=== PATIENT | female | born 1950 | race Caucasian/White ===

== ENCOUNTER 2019-08-14 07:19 | Outpatient (CLI) | payer MEDICARE, SELFPAY ==
[2019-08-14 08:30] LABS: Abs Immature Grans 0.01 k/cumm (0.0-0.09); Absolute Basophil Count 0.03 k/cumm (0.0-0.2); Absolute Eosinophil Count 0.21 k/cumm (0.0-0.7); Absolute Lymphocyte Count 3.67 k/cumm (1.2-3.4); Absolute Monocyte Count 0.65 k/cumm (0.11-0.7); Absolute Neutrophil Count 2.84 k/cumm (1.2-6.7); Basophils % 0.4; Eosinophils % 2.8; HCT 43.4 % (36.0-46.0); HGB 14.8 g/dL (12.0-15.5); Immature Grans % 0.1; Lymphocytes % 49.5; Mean Corp. HGB Concentration 34.1 g/dL (32.0-36.0); Mean Corpuscular Hemoglobin 30.6 pg (27.0-33.0); Mean Corpuscular Volume 89.7 fL (80-95); Mean Platelet Volume 10.1 fL (8.0-11.0); Monocytes % 8.8; Neutrophils % 38.4; Platelet Count 328 x1000/uL (130-400); RBC 4.84 m/cumm (4.00-5.20); RBC Distribution Width 13.6 % (11.7-14.6); White Blood Cell Count 7.41 k/cumm (4.4-10.8)
[2019-08-14 10:05] LABS: ALT 45 U/L (14-59); AST 25 U/L (15-37); Albumin 3.8 g/dL (3.4-5.0); Alkaline Phosphatase 49 U/L (46-116); Anion Gap 7.7 mmol/L (3-11); BUN 11 mg/dL (7-18); Bilirubin, Total 0.8 mg/dL (0.2-1.0); CO2 30.3 mmol/L (21.0-32.0); CREATININE 0.89 mg/dL (0.55-1.02); Calcium 9.1 mg/dL (8.5-10.1); Calculated LDL 91 mg/dL; Chloride 106 mmol/L (98-107); Cholesterol 162 mg/dL (50-200); Glucose 97 mg/dL (70-100); HDL Cholesterol 61 mg/dL (40-60); Potassium 4.1 mmol/L (3.5-5.1); Sodium 144 mmol/L (136-145); Total Protein 6.7 g/dL (6.4-8.2); Triglyceride 52 mg/dL (30-150)
== END 2019-08-14 07:39 ==
PROVIDERS: PCP Family Medicine; Visit Provider Family Medicine
DX: E78.5 Hyperlipidemia, unspecified (principal); K90.0 Celiac disease
CPT/HCPCS: 36415; 80053; 80061; 85025

== ENCOUNTER 2019-09-23 00:52 | Outpatient (CLI) | payer MEDICARE, SELFPAY ==
--- NOTE | 2019-09-23 08:13 | DI.MAMMO_ITS ---
EXAM: MAMMO SCREENING CLINICAL HISTORY: SCREENING, Z12.31 TECHNIQUE: Mammograms were interpreted according to the usual protocol including computer analysis w [employer] CAD system, tomosynthesis and C-view imaging. COMPARISON: [id number] FINDINGS: The breasts are composed of heterogeneously dense fibroglandular tissue, breast density category C. No suspicious masses or suspicious microcalcifications are seen. There has been no significant change . IMPRESSION: Category 1, negative mammogram. Yearly screening mammography is recommended. BI-RADS Cat 1 - Negative Breast Density - Category C - Heterogeneously dense
== END 2019-09-23 01:12 ==
PROVIDERS: PCP Family Medicine; Visit Provider Family Medicine
DX: Z12.31 Encounter for screening mammogram for malignant neoplasm of breast (principal)
CPT/HCPCS: 77063; 77067

== ENCOUNTER 2020-04-08 15:56 | Outpatient (CLI) | payer MEDICARE, SELFPAY ==
--- NOTE | 2020-04-08 09:45 | DI.RAD_ITS ---
EXAM: XR HIP RT COMPLETE AP PELVIS INDICATION: eval R hip pain. COMPARISON: No exams were available for comparison TECHNIQUE: 2D digital imaging was performed. FINDINGS: Moderately severe degenerative changes are seen in the right hip. There is joint space narrowing and subchondral sclerosis. A collar osteophyte is seen in the right femur. The bones are normally mine ralized. The left hip is well maintained. The sacroiliac joints and symphysis pubis are unremarkabl e. The soft tissues are unremarkable. IMPRESSION: Moderately severe osteoarthritis of the right hip. DATA REPOSITORY: RADIATION DOSE DELIVERED:
== END 2020-04-08 16:16 ==
PROVIDERS: PCP Family Medicine; Referring Provider Family Medicine; Visit Provider Student in an Organized Health Care Education/Training Program
DX: M25.551 Pain in right hip (principal); M16.11 Unilateral primary osteoarthritis, right hip
CPT/HCPCS: 99203; 99214; 73502

== ENCOUNTER 2020-07-16 01:54 | Outpatient (CLI) | payer MEDICARE, SELFPAY ==
[2020-07-16 09:36] LABS: HCT 46.4 % (36.0-46.0); HGB 15.6 g/dL (11.2-15.7); MCH 30.3 pg (27.0-33.0); MCHC 33.6 % (32.0-36.0); MCV 90.1 fL (80-95); MPV 9.9 fL (8.0-11.0); Platelet Count 336 10^3/uL (130-400); RBC 5.15 10^6/uL (3.93-5.22); RDW 12.8 % (11.7-14.6); RDW-SD 42.5 fL
[2020-07-16 10:35] LABS: Anion Gap 9.8 mmol/L (3-11); BUN 8 mg/dL (7-18); CO2 28.2 mmol/L (21.0-32.0); CREATININE 0.84 mg/dL (0.55-1.02); Calcium 9.6 mg/dL (8.5-10.1); Chloride 104 mmol/L (98-107); Glucose 110 mg/dL (74-106); Sodium 142 mmol/L (136-145)
[2020-07-17 17:24] LABS: COVID-19 RT-PCR Result NEGATIVE (Negative)
== END 2020-07-16 02:14 ==
PROVIDERS: PCP Family Medicine; Visit Provider Student in an Organized Health Care Education/Training Program
DX: M16.11 Unilateral primary osteoarthritis, right hip (principal); Z01.818 Encounter for other preprocedural examination
CPT/HCPCS: 36415; 80048; 85027; 86850; 86900; 86901; U0003

== ENCOUNTER 2020-07-20 07:17 | Observation (INO) | payer MEDICARE, SELFPAY ==
[2020-07-20] VITALS (12 sets, daily range): BP systolic 76–125; BP diastolic 43–80; PULSE 64–87; RESP 15–18; TEMP 35–36.7; O2SAT 95–100
[2020-07-20] MEDS: Celecoxib 200 MG CAP 400 MG PO (07:48)
[2020-07-20] MEDS: Acetaminophen 500 MG TAB 1000 MG PO ×3 (07:49→20:00)
[2020-07-20] MEDS: Lactated Ringers 1,000 ML 80 ML IV ×3 (08:08→23:51)
[2020-07-20] MEDS: ceFAZolin 2 GM/50 ML BAG IVPB (09:14)
[2020-07-20] MEDS: Bupivacaine 0.25% Pres-Free 30 ML VIAL (10:20)
[2020-07-20] MEDS: Ketorolac 30 MG/ML VIAL (10:20)
--- NOTE | 2020-07-20 10:28 | DI.RAD_ITS ---
EXAM: XR HIP RT IN OR CLINICAL HISTORY: Primary osteoarthritis of right hip TECHNIQUE: 2D and realtime digital imaging was performed. CONTRAST MATERIAL: Refer to procedure report. COMPARISON: No exams were available for comparison FINDINGS: Fluoroscopy was provided for Dr. Wooten during the performance of a right total hip replacement. Please refer to the procedure report for complete details. Fluoro time: 33.2 seconds IMPRESSION: RADIATION DOSE DELIVERED:
--- NOTE | 2020-07-20 10:33 | ROE_ITS ---
Date of service: 07/20/20 Time of Service: 10:33 Operative Note Operative Note DATE OF PROCEDURE: 07/20/20 PRE-OP DIAGNOSIS: Right Hip Osteoarthritis POST-OP DIAGNOSIS: same PROCEDURE: Right Anterior Total Hip Arthroplasty SURGEON: Fredy Wooten FISHER LINE: Chavez Torres ANESTHESIA: spinal ESTIMATED BLOOD LOSS: 200 PATHOLOGY: none sent COMPLICATIONS: None Patient was transported to: PACU Patient's condition: stable Implants: 1. Depuy [place] Acetabular Component, 50mm 2. Depuy Acetabular Liner, [id number] 3. Depuy Corail High Offset Collared Femoral Stem, Size 10 4. Depuy Altrx Ceramic Femoral Head, Size 32+5mm Indications: I have seen Yaritza in clinic for symptoms of hip arthritis, confirmed with radiographic findings. She has exhausted nonoperative methods and was having significant limitations in daily function and desired better function and less pain. I discussed the technical details of a hip replacement. I explained the risks of the procedure to include, but not limited to, bleeding, infection, pain, stiffness, fracture, damage to nerves and vessels, damage to muscles and tendons, loosening, instability, leg length inequality, need for repeat procedure, blood clot and cardiopulmonary demise. Despite these risks, Yaritza elected to proceed. Findings: There was significant signs of arthritis throughout the hip. Large peripheral osteophytes were encountered along the femoral neck. Procedure Description: Yaritza was greeted in the preoperative holding area where the correct side was identified and marked. The consent was reviewed with the patient and signed. The history and physical was updated. All questions were answered. Yaritza was taken back to the operating room. A spinal anesthestic was then administered. The patient was placed into the supine position on the operating room table. The patient was then positioned onto the ARCH table. Both feet were wrapped with Webrill cotton wrap along with Coban. The feet were placed in specialized boots for the ARCH table, well seated within the boot and secured. SCDs were applied. The patient was then slid down onto a peroneal post and the nonoperative leg was secured in a leg freedman attached to the table. The operative side was placed into the ARCH table attachment and bed height and positioning was secured. A preoperative AP pelvis was obtained to serve as a reference for determining leg lengths. Prophylactic antibiotics in the form of Cefazolin were administered. 1g of Tranxemic Acid was given intravenously within 30 minutes of incision. The right leg was then prepped with Chloraprep and draped in a standard fashion. A second prep with Chloraprep was performed prior to placement of a shower-curtain type drape with Iodine impregnated skin protection. A timeout to confirm correct identity, side and site, procedure, allergies, anesthesia, and medical concerns was performed. An obliquely oriented incision was made starting lateral to the ASIS and running distal over the Tensor Fascia Sarah (TFL) muscle belly toward the fibular head, approximately 10cm. The skin and soft tissue was dissected sharply, through Sharon?s fascia, and to the fascia of the TFL. With the fascia and superior border of the IT band identified, the fascia was incised with a new knife just above any perforators from the IT band. The TFL muscle belly was bluntly dissected away from the fascia and moved laterally. The fat between TFL and rectus was identified to ensure the dissection was not within the TFL. Blunt dissection created space between abductors and the capsule and retractor was placed over the lateral femoral neck. The fibers of the rectus femoris tendon were identified and these were freed from the anterior capsule. A second cobra retractor was placed around the medial femoral neck. The TFL was further retracted laterally to show the deep fascia. Careful dissection through this layer identified three main crossing vessels of the lateral femoral circumflex. These were cauterized in multiple locations and then cut without any noticeable bleeding. The TFL was further released bluntly from the deep fascia to expose anterior hip capsule and fat The Mike orthopaedic retractor was then placed beneath the TFL and against sartorius and medial soft tissues to protect and retract the soft tissues. A T-capsulotomy was then performed starting at the superior lateral acetabulum a nd moving distally to the intertrochanteric ridge. These capsular flaps were tagged with a No. 1 Ethibond and elevated from within. The capsular flaps were released to the shoulder of the lateral neck and to the lesser trochanter to give excellent visualization of the proximal femur. A neck osteotomy was performed using an oscillating saw based on preoperative templates. This cut started in the shoulder and of the lateral neck and exited medially. The saw was at all times directed medially to avoid injury to the greater trochanter. 6cm of traction was applied to the leg and the osteotomy opened. The femoral head was removed with a corkscrew, making sure to protect the TFL on its exit. This was measured on the back table to determing the starting reamer size. Portions of the rectus obscuring visualization were minimally elevated off the superior acetabulum. An anterior retractor was placed over the anterior wall between capsule and labrum and attached to the Gripper retraction system. A posterior retractor was placed similarly. This provided excellent visualization. The contents of the cotyloid fossa were removed with electrocautery and the labrum was removed with a knife. There was a notable floor osteophyte. There was significant chondromalacia of the superior acetabulum with large lateral neck osteophytes. Acetabular reaming began with a 46mm reamer. This first reaming was directed anterior to posterior and medial to get down to the true floor. This was inspected and reamed until the true floor was reached. The anterior retractor was then released and entry and exit was provided by traction on the capsular flaps. I then reamed sequentially up to a 50mm reamer where good fit was obtained. The larger reamers were oriented based on anatomical reference of the anterior and lateral chun to ensure proper abduction and anteversion. Positioning and size was confirmed with the fluoroscopy. A 50mm Depuy [place] acetabular component was selected. The acetabulum was reamed around the periphery with the selected acetabular size to prevent a rim fit. The deep tissues were irrigated. The acetabular component was then impacted in a position of about 40-45 degrees of abduction and 15-20 degrees of anteversion, using the patient?s anatomy as the ultimate landmark. Fluoroscopy was used to confirm this. There was excellent green end department supervisor of the acetabular component and the inserting handle was removed. The acetabular liner, Depuy [id number] polyethylene liner, was inserted and lined up with the tines of the acetabular component. There was no soft tissue interposition. The liner was then impacted into position and confirmed to be well-seated. A portion of the veronica-articular cocktail was then injected around the acetabulum into the capsule and periosteum. This cocktail consisted of 50cc of 0.25% Bupivicaine and 20cc of Exparel, expanded to a total of 120cc. Traction was released from the femur. The leg was rotated to 120 degrees. Any remaining medial capsule was released until the lesser trochanter was easily palpable. A Feliz retractor was placed medially. The lateral capsule was further released into the shoulder to allow access to the greater trochanter. A Feliz retractor was placed over the greater trochanter which allowed the trochanter to flip in front of the capsule for excellent exposure. The leg was brought down into maximal extension and 20 degrees of adduction while ensuring there was no impingement on the acetabulum. Any remnant capsule within the trochanter was released. Piriformis and obturator externis were identified and protected. There was excellent access to the proximal femur. The lateral neck remnant was removed with a rongeur. A blunt canal probe was used to identify the canal and trajectory for later broaching. A box osteotome initiated the broach course. A small curved rasp and a curved curette were used to work laterally. Broaching then began with a size 8 Corail broach. This was inserted manually around the trochanter and into the canal before mallet blows. The broach was seated to a few millimeters below the cut level based on the neck cut and the preoperative template. Sequential broaching was continued with the Jusp pneumatic broaching device until a tight fit was obtained with good rotational control of the femur. A trial collared high offset neck was inserted along with a +1 trial head. The leg was brought out of extension and adduction and then reduced with traction and internal rotation. The leg was stable anteriorly in a position of 30 degrees of extension and 90 degrees of external rotation. Fluoroscopy was used to ensure there was no fracture and the stem was seated well. Leg lengths were checked with an AP pelvis and pelvic reference points. [employer] navigation system was used to confirm appropriate positioning and leg length and offset. Increaed to +5 head better recreated the offset and leg lengths. Once content with the desired offset and leg lengths, the leg was brought back into extension, external rotation and adduction. The periosteum and surrounding tissue was injected with remaining portion of the veronica-articular cocktail. The proximal femur was irrigated as well as the deep tissues. The Ninja Blocksuy Corail collared high offset stem, size 10, was then manually inserted into the proximal femur making sure to control rotation. It was then malleted into position with light blows, giving breaks to allow bone expansion and decrease risk of fracture. The selected Depuy Altrx Ceramic Head, size 32+5mm, was then placed onto the clean and dry trunnion and secured with impaction onto the tapered fit. The leg was brought back out of extension and adduction and reduced with traction and internal rotation. Stability was confirmed with no shuck at 90 degrees of external rotation and 30 degrees of extension. No impingement through range of motion arc. Final x-ray images were obtained with fluoroscopy to confirm adequate positioning and no intraoperative fracture. The deep tissues were thoroughly irrigated with Irrisept chlorhexadine solution. The second dose of TXA 1g was administered intravenously.The capsule was then reapproximated with the previously placed Ethibond sutures. The TFL fascia was finally closed with a No. 2 Stratafix, barbed suture. Deep tissues were then reapproximated with 0 Vicryl and a running 2-0 Vicryl. The skin was closed with a running 4-0 Monocryl in a subcuticular fashion. This was reinforced with skin glue. A Mepilex silver dressing was applied. At the end of the case, all counts were correct. Yaritza was transferred to the hospital bed without difficulty and suffering no apparent complication. Yaritza has a good prognosis. Physical therapy will start today and without restrictions, weight-bearing as tolerated. Aspirin 81mg BID will be used for DVT prophylaxis.
[2020-07-20] MEDS: ALPRAZolam 0.5 MG TAB PO ×3 (13:18→20:00)
[2020-07-20] MEDS: ceFAZolin 1 GM/50 ML BAG IVPB ×2 (13:18→22:07)
--- NOTE | 2020-07-20 15:05 | IN_ITS ---
Date of service: 07/20/20 Time of Service: 15:05 PT Notes Visit Reasons: RIGHT HIP DJD Physical Therapy Inpatient Initial Evaluation Date: 07/20/2020 Referring Doctor: Fredy Wooten MD PT Orders: PT CONSULT: Status post Ortho surgery. Status post right NORBERTO. Severe anxiety. Likely to stay first night. Precautions: Fall. Standard. WBAT on right LE. Patient Profile/Admitting Diagnosis: Yaritza is a 69-year-old female with primary osteoarthritis of the right hip and is status post total hip arthroplasty on postoperative day 0. PMHX: Medical History (Updated 04/13/20 @ 11:55 by Meme Orozco RN) Allergic rhinitis Anxiety disorder Asthma Celiac disease Constipation Genital HSV GERD (gastroesophageal reflux disease) Irritable bowel syndrome Restless leg syndrome Social History/Home Situation: Lives with in a private home with 5 steps to enter with bilateral rails. She is independent with all aspects of ADLs prior to surgery. Equipment Owned/DME: None Subjective: Patient initially reported that she is numb and that she could not move her toes when this PT came in around 12:30 PM this afternoon. Later in the afternoon nurse Shawn stated that she did well moving from the bed to the toilet. She indicated that she wanted to stay overnight as she did not want to wake up her in the middle of the night to help her out with toileting. also had a back surgery previously. Denies headache, chest pain, and dizziness throughout session. Objective: General Observation: Mepilex Ag over surgical incision. Bilateral TEDs on. IV in left UE. Mental Status: Alert and oriented x4 Pain: None reported ROM: Right Upper Extremity: Shoulder Flexion WFL. Shoulder abduction WFL. Elbow flexion WFL. Wrist flexion WFL. Opening and closing of hand WFL. Left Upper Extremity: Shoulder Flexion WFL. Shoulder abduction WFL. Elbow flexion WFL. Wrist flexion WFL. Opening and closing of hand WFL. Right Lower Extremity: Hip flexion WFL. Hip abduction WFL. Knee flexion WFL. Ankle dorsiflexion WFL. Ankle plantarflexion WFL. Left Lower Extremity: Hip flexion WFL. Hip abduction WFL. Knee flexion WFL. Ankle dorsiflexion WFL. Ankle plantarflexion WFL. Strength: Right Upper Extremity: Shoulder flexors 5/5. Shoulder abductors 5/5. Elbow flexors 5/5. Elbow extensors 5/5. It Network Administrator strong. Left Upper Extremity: Shoulder flexors 5/5. Shoulder abductors 5/5. Elbow flexors 5/5. Elbow extensors 5/5. It Network Administrator strong. Right Lower Extremity: Hip flexors 4/5. Hip abductors 4/5. Knee flexors 4-5. Knee extensors 4/5. Ankle dorsiflexors 5/5. Ankle plantarflexors 5/5. Left Lower Extremity:Hip flexors 5/5. Hip abductors 5/5. Knee flexors 5/5. Knee extensors 5/5. Ankle dorsiflexors 5/5. Ankle plantarflexors 5/5. Sensation: Intact as to pain and pressure on bilateral lower extremities. Bed Mobility/Transfers: Supine to sit standby assist with HOB at 30 degrees Sit to stand standby assist Stand to sit standby assist Bed to chair standby assist Chair to bed standby Gait: 300 feet with front wheeled walker with WBAT on the right LE requiring contact-guard assist with step through gait pattern. Decreased frank. No complaints of pain. No LOB. No SOB. Balance: Static Sitting: Normal Dynamic Sitting: Normal Static Standing: Fair Dynamic Standing: Fair Special Tests: Mobility Limitations Standardized Measure [facility] 6 clicks Basic Mobility Inpatient Short Form: Raw Score: 22 CMS Score: 21% deficit Informed Consent/Education: Patient instructed in purpose of PT consult and plan of care. Assessment: Georgina demonstrates functional mobility Fernandes requiring the use of front wheeled walker for all mobility ADL performance, difficulty with walking, and increased risk for falls due to postoperative status. Yaritza is a 69-year-old female with primary osteoarthritis of the right hip and is status post total hip arthroplasty on postoperative day 0. Patient presents with clinical signs and symptoms consistent with current/admitting diagnoses that have resulted to mobility limitations, gait instability, generalized weakness, and impairment of motor control as demonstrated by the following impairment level findings: 1. Decreased strength to right hip major muscle groups 2. Impaired standing balance 3. Impaired activity tolerance Impairments are contributing to the following functional limitations: 1. Inability to safely ambulate without assistive device 2. Increase completion time for mobility ADL performance 3. Increased fall risk 4. Inability to negotiate [place] [id number] moderate complexity based on the following: History: 69-year-old female with impairment level findings, functional limitations, and past medical history as indicated above Examination: Demonstrable impairment in strength, balance, and mobility level with underlying impairments and functional limitations as documented above Presentation:Evolving Decision Makin moderate complexity Goals: Goals X 1 more treatment session 1. Supine-Sit independent 2. Sit-Supine independent 3. Sit-Stand independent 4. Stand-Sit independent 5. Bed-Chair independent 6. Chair-Bed independent 7. Supervision gait on level surface with use of least restrictive device for at least 300 feet without report of pain nor dyspnea 8. Supervision stair negotiation while holding onto bilateral rails for at least 5 steps without report of pain nor dyspnea 9. Independent with home exercise program 10. Good static and dynamic standing balance/tolerance Plan of Care/Treatment Plan: 1 more treatment session only. Plan of care has been reviewed with the SOLID FIBER PASTER OPERATOR providing the service under Physical Therapy direction. Initiate Physical Therapy intervention for strengthening, bed mobility, transfers, gait, stairs, balance training, use of assistive device. DISCHARGE RECOMMENDATIONS: Home when medically cleared by orthopedic surgeon. May from outpatient physical therapy services in order to facilitate return to premorbid independent level. TREATMENT CODE/TIME: 13328 x 25 minutes, [id number] x 15 minutes beginning at 15:05 PM. Thank you for the opportunity to participate in the care of this patient. Malena Milton PT, DPT, CLT [facility] [place], [place]
[2020-07-20] MEDS: Celecoxib 200 MG CAP PO (20:00)
[2020-07-20] MEDS: Ondansetron 4 MG/2 ML VIAL IVP (22:04)
[2020-07-20] MEDS: oxyCODONE 5 MG TAB PO (22:04)
[2020-07-21] MEDS: Ondansetron 4 MG/2 ML VIAL IVP (05:05)
[2020-07-21] MEDS: ceFAZolin 1 GM/50 ML BAG IVPB (05:05)
[2020-07-21] MEDS: oxyCODONE 5 MG TAB PO (05:05)
--- NOTE | 2020-07-21 06:38 | DSE_ITS ---
Date of service: 07/21/20 DS: Diagnosis Discharge Diagnosis (1) Primary osteoarthritis of right hip: Status: Acute Discharge Plan Disposition Patient Disposition: HOME Condition: Good Discharge Details Reason For Visit: RIGHT HIP DJD Admit Date/Time: 07/20/20 07:17 Admit Provider: Fredy Wooten Attending Provider: Fredy Wooten Primary Care Provider: Moses Avitia [facility] Course Hospital Course: Patient was admitted to the medical/surgical floor following the procedure. The surgery was tolerated well without any notable medical, surgical, or anesthetic complications. Mobilization began postoperatively. She was voiding spontaneously. Anxiety was managed successfully. Vitals were stable. Physical therapy worked with the patient and was cleared for discharge home. No acute medical issues. Pain was controlled on oral regimen. Home Meds and New Rx's Prescriptions: New acetaminophen 500 mg tablet 1,000 mg PO Q8H PRN (Reason: pain) Qty: 90 RF: 3 aspirin 81 mg tablet,delayed release (DR/EC) 81 mg PO BID Qty: 60 RF: 0 celecoxib 200 mg capsule 200 mg PO BID PRN (Reason: pain) Qty: 60 RF: 1 docusate sodium [Colace] 100 mg capsule 100 mg PO BID PRNQty: 10 RF: 0 pantoprazole 40 mg tablet,delayed release (DR/EC) 40 mg PO DAILY Qty: 30 RF: 0 oxycodone 5 mg tablet 5 mg PO Q4H Qty: 12 RF: 0 Continued fexofenadine [Sil Allergy] 180 mg tablet 180 mg PO DAILY RF: 0 alprazolam 0.5 MG tablet 0.5 mg PO QID RF: 0 albuterol sulfate [ProAir HFA] 200 PUFF HFA aerosol inhaler 2 puff Inhalation PRN PRNRF: 0 Nauzene [id number] mg Tablet,Chewable 2 tab PO PRN PRNRF: 0 montelukast [Singulair] 5 mg Tablet,Chewable 10 mg PO DAILY RF: 0 Discontinued acetaminophen [Tylenol Extra Strength] 500 mg tablet 1,000 mg PO Q6H PRNRF: 0 ipratropium-albuterol 3 ML solution for nebulization 3 ml UPD PRN PRNRF: 0 Discharge Instructions Additional Instructions: Dr. Wooten's Total Hip Discharge Instructions Activity: The most important activity is to walk. You should try to take short walks a few times a day. You have no restrictions on movement or positioning, but do not try to force what you do. You will find some stiffness and weakness with hip flexion (lifting your knee). Do not try to strengthen this too early, continue to practice walking and stairs and this will come. - Outpatient physical therapy can be helpful to help return you to a normal gait and improve your flexibility and strength. This can start around 2 weeks. For most patients, it?s not necessary. Usually this is determined at the time of discharge or at the first post-operative visit. - You should wear the NANETTE hose on both legs for 2 weeks. You may remove those at night. These prevent blood pooling and swelling. Dressing: Keep the surgical dressing in place for at least one week, although it may stay in place untill follow-up. It may get wet after 3 days but avoid soaking the dressing. If it gets wet, just lightly pat dry. Most people prefer to cover the dressing with some ClingWrap, Saran Wrap, to keep it dry. After the first week it may be removed if desired and then replaced with light gauze and tape or nothing. It is important to always keep some gauze or the dressing between skin folds, especially when you are sitting, so the incision is not folded over on itself at the belly fold. Medications: - You should take Tylenol and an anti-inflammatory Celebrex as your primary pain control medications. Celebrex is a selective anti-inflammatory which has been show to be the most effective with fewer issues of GI upset. If Celebrex is too expensive, you may take 2 Aleve (Naproxen) twice a day or call Dr. Wooten for other alternatives. - You have been prescribed a stronger pain medication Oxycodone for breakthrough pain, take as needed as prescribed. - You have also been prescribed a stomach acid reduction agent Pantoprozole to help reduce stomach acid and reflux. This is a preventative medication. - You will be taking Aspirin 81mg twice a day for DVT prevention unless instru cted otherwise. - If you have constipation you should take Colace or Miralax (both [id number]). It takes most people 3-4 days to have a bowel movement. Follow-up: 2 weeks. If you have any acute concerns or questions, please do not hesitate to contact the office at [phone]. You may contact Dr. Wooten with any questions after hours through the hospital at [phone] or on his cell phone at [phone]. Referrals: Fredy Wooten MD [ [facility] STAFF PHYSICIAN] - Activity:: Activity as Tolerated Equipment/Supplies:: Walker Diet:: As Tolerated Discharge Orders Discharge Orders: Discharge Order (Routine); Ordered 07/21/20 Ordered By: Fredy Wooten DS: Summary Status at Discharge Functional status at discharge: uses cane/walker Overall status at discharge: patient is progressing back to baseline Mental Status: mental status grossly normal Speech and Movement: speech and movement normal Mood: congruent mood Affect: normal affect Exam Psych Mental Status: mental status grossly normal Speech and Movement: speech and movement normal Mood: congruent mood Affect: normal affect DS: Data Vitals/I&O Vitals and I&O: Vital Signs Temperature 35.8 C L 07/20/20 23:45 Temperature Source Tympanic 07/20/20 23:45 Pulse 87 07/20/20 23:45 Pulse Rhythm Regular 07/20/20 23:45 Respiratory Rate 18 07/20/20 23:45 Respiratory Effort Non-Labored 07/20/20 23:45 Respiratory Depth Normal 07/20/20 23:45 Respiratory Pattern Normal 07/20/20 23:45 Blood Pressure 123/80 07/20/20 23:45 Pulse Oximetry 96 07/20/20 23:45 Respiratory End-tidal CO2 30 07/20/20 11:45 Oxygen Delivery Method Room Air 07/20/20 23:45 Oxygen Flow Rate 0 07/20/20 23:45 Pain Level 4 07/21/20 05:05 Intake & Output 07/20/20 07/20/20 07/21/20 11:59 23:59 11:59 Intake Total 1170 / 3323.333 2153.333 / 3323.333 Output Total 200 / 200 Balance 970 / 3123.333 2153.333 / 3123.333 Weight 60.3 kg Intake: IV 1170 / 2273.333 1103.333 / 2273.333 Oral 1050 / 1050 Output: Estimated Blood Loss 200 / 200 Other: Urine Color Yellow Yellow Urine Appearance Clear Clear Urine Odor Normal Normal Comment pt states she has some burning when she voids Emesis Description None Voiding Methods Toilet Toilet [facility] Medical History Allergic rhinitis Anxiety disorder Asthma Celiac disease Constipation Genital HSV GERD (gastroesophageal reflux disease) Gluten intolerance CELIAC DISEASE Irritable bowel syndrome Restless leg syndrome Surgical History History of colonoscopy History of hysterectomy History of tonsillectomy Social History Smoking/Tobacco Use Status: Former Tobacco Use Drug use: Never Do you feel safe in your relationship?: Yes
[2020-07-21 08:05] VITALS: BP 126/79; PULSE 73; RESP 18; TEMP 36.3; O2SAT 99
[2020-07-21] MEDS: Acetaminophen 500 MG TAB 1000 MG PO (08:13)
[2020-07-21] MEDS: Celecoxib 200 MG CAP PO (08:14)
[2020-07-21] MEDS: Fexofenadine 180 MG TAB PO (08:14)
[2020-07-21] MEDS: ALPRAZolam 0.5 MG TAB PO ×2 (08:14→12:07)
[2020-07-21] MEDS: Pantoprazole 40 MG TABCR PO (08:14)
--- NOTE | 2020-07-21 10:41 | PT.INTREAT ---
Date of service: 07/21/20 Time of Service: 10:41 PT Notes Visit Reasons: RIGHT HIP DJD Inpatient Physical Therapy Treatment Note [facility] Date: 07/20/2020 PRECAUTIONS: Fall, WBAT on R SUBJECTIVE: Yaritza states that she feels ready to return to home today. She feels that she has the proper equipment at home, although she does state that she needs a FWW to take home. OBJECTIVE: Patient was issued standard FWW for at home use. PAIN: No c/o pain BED MOBILITY/TRANSFERS Supine-sit: I Sit-supine: I Sit-stand: I Stand-sit: I Bed-chair: S Chair-bed: S GAIT Assistive Device: FWW Weight bearing: WBAT R Assist: S Distance: 300' THEREX: Patient was instructed in several LE strengthening exercises, while seated at EOB, as per flow sheet. Patient requires verbal and occasional visual cueing gor proper exercise performance. STAIRS: Up/down 3x4 and 2x6 using B rails and a step-to pattern, independently ASSESSMENT: Patient tolerated session well, without complaint. She demonstrates independence with bed mobility and transfers as well as with stair negotiation, at this time. PLAN: As per primary PT TREATMENT CODE/TIME: 40 minutes; 02132 x2, [id number]
[2020-07-21 11:00] VITALS: BP 120/70; PULSE 77; RESP 18; TEMP 36.1; O2SAT 98
--- NOTE | 2020-07-21 15:49 | INITIAL_ITS ---
- If Service Date Differs Date of service: 07/21/20 Time of Service: 15:49 Care Management Initial Assess REASON FOR HOSPITALIZATION:: Right Hip DJD PAST MEDICAL HISTORY/PAST SURGICAL HISTORY:: Medical History. Allergic rhinitis. Anxiety disorder. Asthma. Celiac disease. Constipation. Genital HSV. GERD (gastroesophageal reflux disease). Irritable bowel syndrome. Restless leg syndrome PREVIOUS FUNCTIONAL STATUS/SOCIAL/FAMILY SUPPORTS:: Yaritza lives in [place] with her , Timur. 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 She reported that her husb and fixes bikes and gives many away to children in the community. She enjoys knitting, and reported that she has knitted 80 hats this year to donate. She is independent at baseline. CURRENT FUNCTIONAL STATUS:: Yaritza was sitting up in bed when CM met with her. She was pleasant and forthcoming. She reported that she didn't have a great night, but she is feeling better today. She reported that she has a history of very bad anxiety, but she is doing well on her current medications and meditation/breathing techniques. She reported that she is going home today, and that her will pick her up at 3pm. CM will continue to follow. ADVANCE DIRECTIVES:: None on file. Has patient been provided with info about the portal/API?: Yes Did the patient sign up for the portal?: Yes (previously) CODE STATUS:: Full Code INSURANCE COVERAGE / FINANCIAL ISSUES:: [facility]/ AARP CURRENT HOME/COMMUNITY SERVICES/EQUIPMENT:: No current services or equipment PRIMARY CARE PHYSICIAN:: Moses Avitia POTENTIAL DISCHARGE NEEDS:: Evaluations for further needs, follow up appointments PATIENT/FAMILY EDUCATION NEEDS:: Review discharge instructions regarding activity levels and medications, discussion of self care needs including ask me three. ANTICIPATED BARRIERS TO DISCHARGE:: None identified. TRANSPORTATION:: Via private vehicle by family. PLAN:: Anticipate Yaritza will return home with no additional services when medically cleared. Her will pick her up when ready via private vehicle. She will follow up with Ortho and her discharge plan of care. CM will continue to follow.
--- NOTE | 2020-07-21 15:50 | CHAPLAIN ---
Yaritza and I know each other from both working at [employer] in previous jobs. Yaritza told me about her surgery and is very pleased with Dr. Wooten's care. She said she is being discharged to day and that she is well supported by her . She had some anxiety about the surgery, but explained that Dr. Wooten addressed her concerns and was very supportive.
--- NOTE | 2020-07-21 16:00 | PT.INDS ---
Date of service: 07/21/20 PT Notes Visit Reasons: RIGHT HIP DJD Physical Therapy Inpatient Discharge Summary Date: 07/21/2020 Dates of service: 07/21/2020 only Referring Doctor: Fredy Wooten MD PT Orders: PT CONSULT: Status post Ortho surgery. Status post right NORBERTO. Severe anxiety. Likely to stay first night. Precautions: Fall. Standard. WBAT on right LE. Patient Profile/Admitting Diagnosis: Yaritza is a 69-year-old female with primary osteoarthritis of the right hip and is status post total hip arthroplasty on postoperative day 0. PMHX: Medical History (Updated 04/13/20 @ 11:55 by Meme Orozco RN) Allergic rhinitis Anxiety disorder Asthma Celiac disease Constipation Genital HSV GERD (gastroesophageal reflux disease) Irritable bowel syndrome Restless leg syndrome Social History/Home Situation: Lives with in a private home with 5 steps to enter with bilateral rails. She is independent with all aspects of ADLs prior to surgery. Equipment Owned/DME: None Subjective: NT. See most recent RESPIRATORY DIRECTOR notes. Objective: General Observation: NT. See most recent RESPIRATORY DIRECTOR notes. Mental Status:NT. See most recent RESPIRATORY DIRECTOR notes. Pain: NT. See most recent RESPIRATORY DIRECTOR notes. ROM: Right Upper Extremity: Shoulder Flexion WFL. Shoulder abduction WFL. Elbow flexion WFL. Wrist flexion WFL. Opening and closing of hand WFL. Left Upper Extremity: Shoulder Flexion WFL. Shoulder abduction WFL. Elbow flexion WFL. Wrist flexion WFL. Opening and closing of hand WFL. Right Lower Extremity: Hip flexion WFL. Hip abduction WFL. Knee flexion WFL. Ankle dorsiflexion WFL. Ankle plantarflexion WFL. Left Lower Extremity: Hip flexion WFL. Hip abduction WFL. Knee flexion WFL. Ankle dorsiflexion WFL. Ankle plantarflexion WFL. Strength: Right Upper Extremity: Shoulder flexors 5/5. Shoulder abductors 5/5. Elbow flexors 5/5. Elbow extensors 5/5. Employee Benefits Insurance Agent strong. Left Upper Extremity: Shoulder flexors 5/5. Shoulder abductors 5/5. Elbow flexors 5/5. Elbow extensors 5/5. Employee Benefits Insurance Agent strong. Right Lower Extremity: Hip flexors 4/5. Hip abductors 4/5. Knee flexors 4-5. Knee extensors 4/5. Ankle dorsiflexors 5/5. Ankle plantarflexors 5/5. Left Lower Extremity:Hip flexors 5/5. Hip abductors 5/5. Knee flexors 5/5. Knee extensors 5/5. Ankle dorsiflexors 5/5. Ankle plantarflexors 5/5. Sensation: Intact as to pain and pressure on bilateral lower extremities. Bed Mobility/Transfers: Supine to sit standby assist with HOB at 30 degrees Sit to stand standby assist Stand to sit standby assist Bed to chair standby assist Chair to bed standby Gait: 300 feet with front wheeled walker with WBAT on the right LE requiring contact-guard assist with step through gait pattern. Decreased frank. No complaints of pain. No LOB. No SOB. Up-and-down three 4 inch steps and two 6 inch steps while holding onto bilateral rails with step to gait pattern independently. Balance: Static Sitting: Normal Dynamic Sitting: Normal Static Standing: Fair Dynamic Standing: Fair Assessment: Georgina demonstrates functional mobility decline requiring the use of front wheeled walker for all mobility ADL performance, difficulty with walking, and increased risk for falls due to postoperative status. Yaritza is a 69-year-old female with primary osteoarthritis of the right hip and is status post total hip arthroplasty on postoperative day 0. Goals: Goals X 1 more treatment session 1. Supine-Sit independent MET 2. Sit-Supine independent MET 3. Sit-Stand independent MET 4. Stand-Sit independent MET 5. Bed-Chair independent MET 6. Chair-Bed independent MET 7. Supervision gait on level surface with use of least restrictive device for at least 300 feet without report of pain nor dyspnea MET 8. Supervision stair negotiation while holding onto bilateral rails for at least 5 steps without report of pain nor dyspnea MET 9. Independent with home exercise program MET 10. Good static and dynamic standing balance/tolerance NOT MET DISCHARGE RECOMMENDATIONS: Home when medically cleared by orthopedic surgeon. May from outpatient physical therapy services in order to facilitate return to premorbid independent level. TREATMENT CODE/TIME: NC. Thank you for the opportunity to participate in the care of this patient. Malena Milton PT, DPT, CLT [facility] [place], [place]
--- NOTE | 2020-07-21 16:21 | PDOC.CMDIS ---
- If Service Date Differs Date of service: 07/21/20 Time of Service: 16:21 LACE Index Scoring Tool - Questions: Length of Stay (in days): 2 Acuity (Admit via E.D.?): No E.D. Visits: 0 - Answers: Total Score: 2 Risk of Readmission: Low Risk Care Management Discharge Reason for Hospitalization: Right Hip DJD Discharge Plan: Yaritza will return home with no additional services at this time. She will be driven home via private vehicle by family. She will follow up with Ortho and her discharge plan of care. She is happy to be going home. Patient/Family Education Needs: Review discharge instructions regarding activity levels and medications, discussion of self care needs including ask me three.
== END 2020-07-21 14:32 | disposition home or self-care (01) ==
LOC: PDS 11:07 → MS 11:08
PROVIDERS: Admitting Provider Student in an Organized Health Care Education/Training Program; PCP Family Medicine; Visit Provider Student in an Organized Health Care Education/Training Program
PROC: 0SR904A Replacement of Right Hip Joint with Ceramic on Polyethylene Synthetic Substitute, Uncemented, Open Approach (ICD-10-PCS; CPT 27130; principal; 2020-07-20 09:15)
DX: M16.11 Unilateral primary osteoarthritis, right hip (principal); M25.551 Pain in right hip; Z96.641 Presence of right artificial hip joint; F41.0 Panic disorder [episodic paroxysmal anxiety]; K21.9 Gastro-esophageal reflux disease without esophagitis; G25.81 Restless legs syndrome
CPT/HCPCS: 27130; 20985; C1776; 97110; 97163; 97530; NC; 73501; G0378; J0690; J1100; J1885; J2250; J2405

== ENCOUNTER 2020-07-29 09:52 | Outpatient (CLI) | payer MEDICARE, SELFPAY ==
--- NOTE | 2020-07-29 10:45 | DI.RAD_ITS ---
EXAM: XR HIP RT COMPLETE AP PELVIS INDICATION: 1st post op. COMPARISON: CR XR HIP RT COMPLETE AP PELVIS from 04/08/2020 XR HIP RT IN OR from 07/20/2020 TECHNIQUE: 2D digital imaging was performed. FINDINGS: A right hip prosthesis is noted. The components appear satisfactorily aligned and unchanged when com pared with intraoperative images. No abnormal bony lucencies are seen. The left hip is unremarkable . DATA REPOSITORY: RADIATION DOSE DELIVERED:
== END 2020-07-29 10:12 ==
PROVIDERS: PCP Family Medicine; Visit Provider Physician Assistant
DX: Z96.641 Presence of right artificial hip joint (principal)
CPT/HCPCS: 73502

== ENCOUNTER → 2020-08-26 10:16 | Outpatient (BNVA) | payer MEDICARE, SELFPAY | PROVIDERS: PCP Family Medicine; Referring Provider Family Medicine; Visit Provider Student in an Organized Health Care Education/Training Program | DX: Z96.641 Presence of right artificial hip joint (principal); Z47.1 Aftercare following joint replacement surgery ==

== ENCOUNTER 2020-09-01 03:16 | Outpatient (CLI) | payer MEDICARE, SELFPAY ==
[2020-09-01 10:49] LABS: ALT 49 U/L (14-59); AST 36 U/L (15-37); Albumin 4.4 g/dL (3.4-5.0); Alkaline Phosphatase 74 U/L (46-116); Anion Gap 8.9 mmol/L (3-11); BUN 8 mg/dL (7-18); Bilirubin, Total 0.8 mg/dL (0.2-1.0); CO2 28.1 mmol/L (21.0-32.0); CREATININE 0.85 mg/dL (0.55-1.02); Calcium 9.3 mg/dL (8.5-10.1); Calculated LDL 106 mg/dL (<100); Chloride 102 mmol/L (98-107); Cholesterol 193 mg/dL (<200); Glucose 89 mg/dL (74-106); HDL Cholesterol 73 mg/dL (40-60); Potassium 4.6 mmol/L (3.5-5.1); Sodium 139 mmol/L (136-145); Total Protein 7.5 g/dL (6.4-8.2); Triglyceride 72 mg/dL (<150)
== END 2020-09-01 03:36 ==
PROVIDERS: PCP Family Medicine; Visit Provider Family Medicine
DX: E78.5 Hyperlipidemia, unspecified (principal)
CPT/HCPCS: 36415; 80053; 80061

== ENCOUNTER 2021-07-21 14:00 | Outpatient (CLI) | payer MEDICARE, SELFPAY ==
--- NOTE | 2021-07-21 10:30 | DI.RAD_ITS ---
Exam(s) XR HIP RT AP LAT ONLY EXAM: XR HIP RT AP LAT ONLY CLINICAL HISTORY: ANNUAL F/U RIGHT NORBERTO. TECHNIQUE: 2D digital imaging was performed. COMPARISON: CR XR HIP RT COMPLETE AP PELVIS from 07/29/2020 FINDINGS: Position alignment of the components of the right hip prosthesis remain satisfactory. No fracture or loosening evident. IMPRESSION: DATA REPOSITORY: RADIATION DOSE DELIVERED:
== END 2021-07-21 14:01 | disposition home or self-care (01) ==
LOC: DIORS 14:00
PROVIDERS: PCP Family Medicine; Referring Provider Family Medicine; Visit Provider Student in an Organized Health Care Education/Training Program
DX: Z47.1 Aftercare following joint replacement surgery (principal); Z96.641 Presence of right artificial hip joint; M62.81 Muscle weakness (generalized)
CPT/HCPCS: 99213; 73502

== ENCOUNTER 2021-08-12 02:24 | Outpatient (CLI) | payer MEDICARE, SELFPAY ==
[2021-08-12 07:56] LABS: Abs Immature Grans 0.03 10^3/uL (0.0-0.06); Absolute Basophil Count 0.05 10^3/uL (0.0-0.2); Absolute Eosinophil Count 0.25 10^3/uL (0.0-0.7); Absolute Lymphocyte Count 3.29 10^3/uL (1.2-3.4); Absolute Monocyte Count 0.59 10^3/uL (0.1-0.8); Absolute Neutrophil Count 3.62 10^3/uL (1.2-6.7); Basophils % 0.6; Eosinophils % 3.2; HCT 44.9 % (36.0-46.0); HGB 14.8 g/dL (11.2-15.7); Immature Grans % 0.4; MCH 30.4 pg (27.0-33.0); MCV 92.2 fL (80-95); MPV 9.7 fL (8.0-11.0); Monocytes % 7.5; Neutrophils % 46.3; Nucleated RBC 0 %; Platelet Count 320 10^3/uL (130-400); RBC 4.87 10^6/uL (3.93-5.22); RDW 13.3 % (11.7-14.6); RDW-SD 45.6 fL; WBC 7.83 10^3/uL (4.4-10.8)
[2021-08-12 07:57] LABS: Bilirubin Negative (Negative); Blood Trace-lysed (Negative); Clarity Sl Cloudy (Clear); Glucose Negative (Negative); Ketones Negative (Negative); Leukocyte Esterase Moderate (Negative); Nitrite Negative (Negative); Specific Gravity 1.025 (1.005-1.025); Urobilinogen 0.2 EU/dL (Up TO 0.2)
[2021-08-12 08:08] LABS: Epithelial Cells Few HPF (Negative); Other Cells Rare Renal (Negative); RBC 0-2 HPF (0-2)
[2021-08-12 08:09] LABS: Bacteria Moderate HPF (Negative); C & S Indicated? Yes; Casts Negative LPF (Negative); Crystals Negative HPF (Negative); Mucus Negative (Negative)
[2021-08-12 09:09] LABS: ALT 43 U/L (14-59); AST 24 U/L (15-37); Albumin 3.9 g/dL (3.4-5.0); Alkaline Phosphatase 55 U/L (46-116); Anion Gap 7.5 mmol/L (3-11); BUN 13 mg/dL (7-18); Bilirubin, Total 0.8 mg/dL (0.2-1.0); CO2 29.5 mmol/L (21.0-32.0); CREATININE 0.9 mg/dL (0.55-1.02); Calcium 9.2 mg/dL (8.5-10.1); Calculated LDL 127 mg/dL (<100); Chloride 105 mmol/L (98-107); Cholesterol 211 mg/dL (<200); Glucose 124 mg/dL (74-106); HDL Cholesterol 69 mg/dL (40-60); Potassium 4.1 mmol/L (3.5-5.1); Sodium 142 mmol/L (136-145); Triglyceride 77 mg/dL (<150)
== END 2021-08-12 02:25 | disposition home or self-care (01) ==
LOC: LBO 02:24
PROVIDERS: PCP Family Medicine; Visit Provider Family Medicine
DX: E78.5 Hyperlipidemia, unspecified (principal); K75.81 Nonalcoholic steatohepatitis (NASH); K90.0 Celiac disease
CPT/HCPCS: 36415; 80053; 80061; 81003; 81015; 85025; 87086

== ENCOUNTER 2021-09-29 00:22 | Outpatient (CLI) | payer MEDICARE, SELFPAY ==
--- NOTE | 2021-09-29 09:22 | DI.MAMMO_ITS ---
Exam(s) MAMMO SCREENING EXAM: MAMMO SCREENING CLINICAL HISTORY: SCREENING MAMMO FOR BREAST CANCER Z12.31. TECHNIQUE: Bilateral full field digital CC and MLO mammographic images were obtained with 3D tomosyn thesis and utilizing computer aided detection (CAD). COMPARISON: Prior mammograms dating back to 2012, the most recent being August 2019. FINDINGS: There has been no significant change in the appearance and distribution of the fibroglandular tissue. There are no new spiculated masses nor malignant appearing microcalcification groups. There is no significant architectural distortion nor skin thickening-retraction. IMPRESSION: No radiographic evidence of malignancy. BI-RADS Category 1 - Negative Breast Density - Category B - Scattered areas of fibroglandular density Breast density Category C or D implies that the patient has dense breast tissue. Dense breast tissue can make it harder to find cancer on a mammogram. Dense breast tissue is also associated with an incr eased risk of breast cancer. This information about the result of the mammogram report was provided to the patient to raise their awareness. Use this report when you speak with the patient about their risks for breast cancer, which includes their family history. At that time, you may recommend additional screening tests (Ultrasoun d or MRI) as these tests may add significant information. A negative radiographic report should not delay biopsy if a dominant or clinically suspicious mass is present. Up to ten percent of cancers are not identified on mammography. A negative report may reinforce clinical impression. Adenosis and dense breasts may obscure an underlying neoplasm. False positive reports average 6 to 10%. Patient will receive a letter notifying them of these results.
== END 2021-09-29 00:42 ==
PROVIDERS: PCP Family Medicine; Visit Provider Family Medicine
DX: Z12.31 Encounter for screening mammogram for malignant neoplasm of breast (principal)
CPT/HCPCS: 77063; 77067

== ENCOUNTER 2022-08-21 03:03 | Outpatient (CLI) | payer MEDICARE, SELFPAY ==
[2022-08-21 09:38] LABS: Abs Immature Grans 0.02 10^3/uL (0.0-0.06); Absolute Basophil Count 0.07 10^3/uL (0.0-0.2); Absolute Eosinophil Count 0.11 10^3/uL (0.0-0.7); Absolute Lymphocyte Count 3.12 10^3/uL (1.2-3.4); Absolute Monocyte Count 0.69 10^3/uL (0.1-0.8); Absolute Neutrophil Count 3.58 10^3/uL (1.2-6.7); Basophils % 0.9; Eosinophils % 1.4; HCT 45.2 % (36.0-46.0); HGB 15.3 g/dL (11.2-15.7); Immature Grans % 0.3; Lymphocytes % 41.1; MCH 30.3 pg (27.0-33.0); MCHC 33.8 % (32.0-36.0); MCV 90 fL (80-95); Monocytes % 9.1; Neutrophils % 47.2; Platelet Count 323 10^3/uL (130-400); RBC 5.05 10^6/uL (3.93-5.22); RDW 13.2 % (11.7-14.6); RDW-SD 42.7 fL; WBC 7.59 10^3/uL (4.4-10.8)
[2022-08-21 09:39] LABS: Bilirubin Negative (Negative); Blood Negative (Negative); Clarity Sl Cloudy (Clear); Glucose Negative (Negative); Ketones Negative (Negative); Leukocyte Esterase Small (Negative); Nitrite Negative (Negative); Urobilinogen 0.2 EU/dL (Up TO 0.2)
[2022-08-21 09:57] LABS: Bacteria Few HPF (Negative); C & S Indicated? No/Sq. Contamination; Casts Negative LPF (Negative); Crystals Negative HPF (Negative); Epithelial Cells Many HPF (Negative); Mucus Negative (Negative); RBC 0-2 HPF (0-2)
[2022-08-21 10:02] LABS: ALT 38 U/L (14-59); AST 23 U/L (15-37); Albumin 4.3 g/dL (3.4-5.0); Alkaline Phosphatase 51 U/L (46-116); Anion Gap 7.6 mmol/L (3-11); BUN 12 mg/dL (7-18); CO2 29.4 mmol/L (21.0-32.0); CREATININE 0.8 mg/dL (0.55-1.02); Calcium 9.2 mg/dL (8.5-10.1); Calculated LDL 77 mg/dL (<100); Chloride 105 mmol/L (98-107); Cholesterol 160 mg/dL (<200); Estimated GFR 78.72 (mL/min/1.73m2); Glucose 92 mg/dL (74-106); HDL Cholesterol 76 mg/dL (40-60); Potassium 3.8 mmol/L (3.5-5.1); Sodium 142 mmol/L (136-145); Total Protein 7.6 g/dL (6.4-8.2); Triglyceride 35 mg/dL (<150)
== END 2022-08-21 03:04 | disposition home or self-care (01) ==
LOC: LBO 03:04
PROVIDERS: PCP Family Medicine; Visit Provider Family Medicine
DX: K90.0 Celiac disease (principal); K75.81 Nonalcoholic steatohepatitis (NASH); E78.5 Hyperlipidemia, unspecified
CPT/HCPCS: 36415; 80053; 80061; 81003; 81015; 85025

== ENCOUNTER → 2022-09-08 17:01 | Outpatient (CLI) | payer MEDICARE, SELFPAY ==
--- NOTE | 2022-09-08 16:15 | DI.RAD_ITS ---
Exam(s) XR FOOT RT COMPLETE EXAM: XR FOOT RT COMPLETE CLINICAL HISTORY: PAIN IN RT FOOT-[id number]. TECHNIQUE: 2D digital imaging was performed. COMPARISON: No exams were available for comparison FINDINGS: 3 views There is no evidence of fracture 9 diastasis of the Lisfranc joint. No osseous lesions nor erosions. Mild-moderate degenerative changes are noted in the metatarsophalangeal joint of the great toe. No pes planus. No inferior calcaneal spur. Small calcification noted posteriorly at the insertional a spect of the Achilles on the posterior calcaneus. IMPRESSION: Mild findings as described above. No fractures. DATA REPOSITORY: RADIATION DOSE DELIVERED:
== END ==
PROVIDERS: PCP Family Medicine; Visit Provider Nurse Practitioner Family
DX: M79.671 Pain in right foot (principal)
CPT/HCPCS: 73630

== ENCOUNTER → 2022-10-04 02:54 | Outpatient (CLI) | payer MEDICARE, SELFPAY ==
--- NOTE | 2022-10-04 | DI.DEXA_ITS ---
Exam(s) XR DEXA BONE DENSITY W/WO EVELIN EXAM: XR DEXA BONE DENSITY W/WO EVELIN CLINICAL HISTORY: OSTEOPOROSIS, M81.0 TECHNIQUE: COMPARISON: No exams were available for comparison FINDINGS: DEXA scan was performed according to the usual protocol. Please see the accompanying data sheets. Findings for left hip scanning are T-score -1.2 with left femoral neck T-score -1.6. Prior examinati on of July 2016 showed left hip T-score -1.0. Lumbar spine scanning shows T-score -1.9, prior examination of 2016 showed lumbar T-score -2.1. Left forearm scanning shows T-score 0.2, prior examination of 2016 showed T-score 1.0. IMPRESSION: Measurements are consistent with osteopenia according to the WHO criteria. The lateral vertebral sca nogram shows no evidence of a vertebral compression fracture. RADIATION DOSE DELIVERED: Total DLP
== END ==
PROVIDERS: PCP Family Medicine; Visit Provider Family Medicine
DX: M81.0 Age-related osteoporosis without current pathological fracture (principal); M85.88 Other specified disorders of bone density and structure, other site
CPT/HCPCS: 77080

== ENCOUNTER 2023-08-24 01:21 | Outpatient (CLI) | payer MEDICARE, SELFPAY ==
[2023-08-24 08:06] LABS: Bilirubin Negative (Negative); Blood Negative (Negative); Clarity Clear (Clear); Glucose Negative (Negative); Ketones Negative (Negative); Leukocyte Esterase Moderate (Negative); Nitrite Negative (Negative); Specific Gravity 1.015 (1.005-1.025); Urobilinogen 0.2 mg/dL (Up to 0.2)
[2023-08-24 08:10] LABS: Abs Immature Grans 0.02 10^3/uL (0.0-0.06); Absolute Basophil Count 0.06 10^3/uL (0.0-0.2); Absolute Eosinophil Count 0.16 10^3/uL (0.0-0.7); Absolute Lymphocyte Count 2.66 10^3/uL (1.2-3.4); Absolute Neutrophil Count 3.61 10^3/uL (1.2-6.7); Basophils % 0.9; Eosinophils % 2.3; HCT 44.7 % (36.0-46.0); HGB 14.8 g/dL (11.2-15.7); Immature Grans % 0.3; Lymphocytes % 37.9; MCH 29.9 pg (27.0-33.0); MCHC 33.1 % (32.0-36.0); MCV 90 fL (80-95); MPV 9.7 fL (8.0-11.0); Monocytes % 7.1; Neutrophils % 51.5; Platelet Count 304 10^3/uL (130-400); RBC 4.95 10^6/uL (3.93-5.22); RDW-SD 43.4 fL; WBC 7.01 10^3/uL (4.4-10.8)
[2023-08-24 08:24] LABS: Bacteria Few HPF (Negative); C & S Indicated? No/Sq. Contamination; Casts Negative LPF (Negative); Crystals Negative HPF (Negative); Epithelial Cells Moderate HPF (Negative); Mucus Negative (Negative); Other Cells Few Renal (Negative); RBC Negative HPF (0-2)
[2023-08-24 08:44] LABS: ALT 34 U/L (14-59); AST 22 U/L (15-37); Albumin 3.9 g/dL (3.4-5.0); Alkaline Phosphatase 57 U/L (46-116); Anion Gap 9.1 mmol/L (3-11); BUN 10 mg/dL (7-18); Bilirubin, Total 0.7 mg/dL (0.2-1.0); CO2 27.9 mmol/L (21.0-32.0); CREATININE 0.7 mg/dL (0.55-1.02); Calcium 9.4 mg/dL (8.5-10.1); Chloride 107 mmol/L (98-107); Estimated GFR 91.83 (mL/min/1.73m2); Glucose 107 mg/dL (74-106); Sodium 144 mmol/L (136-145); Total Protein 7.1 g/dL (6.4-8.2)
== END 2023-08-24 01:22 | disposition home or self-care (01) ==
LOC: LBO 01:21
PROVIDERS: PCP Family Medicine; Visit Provider Family Medicine
DX: K90.0 Celiac disease (principal); K75.81 Nonalcoholic steatohepatitis (NASH); Z00.00 Encounter for general adult medical examination without abnormal findings
CPT/HCPCS: 36415; 80053; 81003; 81015; 85025

== ENCOUNTER → 2023-10-01 03:26 | Outpatient (CLI) | payer MEDICARE, SELFPAY ==
--- NOTE | 2023-10-01 | DI.MAMMO_ITS ---
Exam(s) MAMMO SCREENING EXAM: MAMMO SCREENING CLINICAL HISTORY: SCREENING MAMMO FOR BREAST CANCER Z12.31. TECHNIQUE: Bilateral full field digital CC and MLO mammographic images were obtained with 3D tomosyn thesis and utilizing computer aided detection (CAD). COMPARISON: Prior mammograms were reviewed. FINDINGS: Asymmetric densities in the lateral aspect of the left breast are unchanged from prior mammograms. There are no new spiculated masses nor malignant appearing microcalcification groups. There is no significant architectural distortion nor skin thickening-retraction. IMPRESSION: No radiographic evidence of malignancy. BI-RADS Category 1 - Negative Breast Density - Category B - Scattered areas of fibroglandular density Breast density Category C or D implies that the patient has dense breast tissue. Dense breast tissue can make it harder to find cancer on a mammogram. Dense breast tissue is also associated with an incr eased risk of breast cancer. This information about the result of the mammogram report was provided to the patient to raise their awareness. Use this report when you speak with the patient about their risks for breast cancer, which includes their family history. At that time, you may recommend additional screening tests (Ultrasoun d or MRI) as these tests may add significant information. A negative radiographic report should not delay biopsy if a dominant or clinically suspicious mass is present. Up to ten percent of cancers are not identified on mammography. A negative report may reinforce clinical impression. Adenosis and dense breasts may obscure an underlying neoplasm. False positive reports average 6 to 10%. Patient will receive a letter notifying them of these results.
== END ==
PROVIDERS: PCP Family Medicine; Visit Provider Family Medicine
DX: Z12.31 Encounter for screening mammogram for malignant neoplasm of breast (principal)
CPT/HCPCS: 77063; 77067

== ENCOUNTER 2024-08-29 02:48 | Outpatient (CLI) | payer MEDICARE, SELFPAY ==
[2024-08-29 08:03] LABS: Abs Immature Grans 0.01 10^3/uL (0.0-0.06); Absolute Basophil Count 0.08 10^3/uL (0.0-0.2); Absolute Eosinophil Count 0.17 10^3/uL (0.0-0.7); Absolute Lymphocyte Count 2.84 10^3/uL (1.2-3.4); Absolute Monocyte Count 0.66 10^3/uL (0.1-0.8); Absolute Neutrophil Count 3.16 10^3/uL (1.2-6.7); Basophils % 1.2 %; Eosinophils % 2.5 %; HCT 44.7 % (36.0-46.0); Immature Grans % 0.1 %; MCH 30.3 pg (27.0-33.0); MCHC 33.6 % (32.0-36.0); MCV 90 fL (80-95); MPV 9.9 fL (8.0-11.0); Monocytes % 9.5 %; Neutrophils % 45.7 %; Platelet Count 307 10^3/uL (130-400); RBC 4.95 10^6/uL (3.93-5.22); RDW 13.3 % (11.7-14.6); RDW-SD 44.2 fL; WBC 6.92 10^3/uL (4.4-10.8)
[2024-08-29 08:05] LABS: Bilirubin Negative (Negative); Blood Negative (Negative); Clarity Clear (Clear); Glucose Negative (Negative); Ketones Negative (Negative); Leukocyte Esterase Moderate (Negative); Nitrite Negative (Negative); Specific Gravity 1.015 (1.005-1.025); Urobilinogen 0.2 mg/dL (Up to 0.2)
[2024-08-29 08:24] LABS: ALT 55 U/L (14-59); AST 35 U/L (15-37); Albumin 3.9 g/dL (3.4-5.0); Alkaline Phosphatase 59 U/L (46-116); Anion Gap 8.6 mmol/L (3-11); BUN 7 mg/dL (7-18); Bilirubin, Total 0.74 mg/dL (0.2-1.0); CO2 27.4 mmol/L (21.0-32.0); CREATININE 0.9 mg/dL (0.55-1.02); Calcium 9.4 mg/dL (8.5-10.1); Chloride 109 mmol/L (98-107); Glucose 90 mg/dL (74-106); Potassium 4.2 mmol/L (3.5-5.1); Sodium 145 mmol/L (136-145); Total Protein 7.2 g/dL (6.4-8.2)
[2024-08-29 08:48] LABS: Bacteria Moderate HPF (Negative); Crystals Negative HPF (Negative); Epithelial Cells Many HPF (Negative); RBC 0-2 HPF (0-2)
[2024-08-29 08:49] LABS: C & S Indicated? No/Sq. Contamination; Casts 0-2 Hyaline LPF (Negative); Mucus Trace (Negative)
== END 2024-08-29 02:49 | disposition home or self-care (01) ==
PROVIDERS: PCP Family Medicine; Visit Provider Family Medicine
DX: K90.0 Celiac disease (principal)
CPT/HCPCS: 36415; 80053; 81003; 81015; 85025

== ENCOUNTER 2025-06-02 02:42 | Outpatient (CLI) | payer MEDICARE, SELFPAY ==
--- NOTE | 2025-06-02 07:57 | DI.MAMMO_ITS ---
Exam(s) MAMMO SCREENING EXAM: MAMMO SCREENING CLINICAL HISTORY: SCREENING, Z12.31 TECHNIQUE: Bilateral full field digital CC and MLO mammographic images were obtained with 3D tomosynthesis and utilizing computer aided detection (CAD). COMPARISON: Comparison is made with prior examinations. FINDINGS: Masses/Architectural Distortion: No suspicious masses or areas of architectural distortion are present. Microcalcifications: No suspicious pleomorphic-type are seen. Skin Thickening/Nipple Retraction: None. IMPRESSION: 1. No significant interval change with no specific features of malignancy noted. 2. Unless there is more urgent need, screening mammography is recommended, as per [place] [employer] guidelines. BI-RADS Category 1 - Negative Breast Density - Category B - There are scattered areas of fibroglandular density. Breast density Category C or D implies that the patient has dense breast tissue. Dense breast tissue can make it harder to find cancer on a mammogram. Dense breast tissue is also associated with an increased risk of breast cancer. This information about the result of the mammogram report was provided to the patient to raise their awareness. Use this report when you speak with the patient about their risks for breast cancer, which includes their family history. At that time, you may recommend additional screening tests (Ultrasound or MRI) as these tests may add significant information. A negative radiographic report should not delay biopsy if a dominant or clinically suspicious mass is present. Up to ten percent of cancers are not identified on mammography. A negative report may reinforce clinical impression. Adenosis and dense breasts may obscure an underlying neoplasm. False positive reports average 6 to 10%. Patient will receive a letter notifying them of these results.
== END 2025-06-02 03:02 ==
PROVIDERS: PCP Family Medicine; Visit Provider Family Medicine
DX: Z12.31 Encounter for screening mammogram for malignant neoplasm of breast (principal); R92.323 Mammographic fibroglandular density, bilateral breasts
CPT/HCPCS: 77063; 77067

== ENCOUNTER 2025-06-03 01:46 | Outpatient (CLI) | payer MEDICARE, SELFPAY ==
--- NOTE | 2025-06-03 10:49 | DI.DEXA_ITS ---
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 No compression deformities identified. Left hip: Total T-Score: -1.1. This compares to -1.2 on the prior examination. Total Z-Score: 0.6 T- and Z-scores: Findings are consistent with osteopenia. Lumbar Spine: Total T-Score: -1.3. This compares to -1.9 on the prior examination. Total Z-Score: 1.0 T- and Z-scores: Findings are consistent with osteopenia. IMPRESSION: No evidence of osteoporosis.
== END 2025-06-03 02:06 ==
LOC: DI 01:47
PROVIDERS: PCP Family Medicine; Visit Provider Family Medicine
DX: M81.0 Age-related osteoporosis without current pathological fracture (principal)
CPT/HCPCS: 77080

== ENCOUNTER 2025-09-15 08:31 | Outpatient (CLI) | payer MEDICARE, SELFPAY ==
[2025-09-15 08:58] LABS: Abs Immature Grans 0.02 10^3/uL (0.0-0.06); HCT 45.9 % (36.0-46.0); HGB 15.7 g/dL (11.2-15.7); Immature Grans % 0.3 %; MCH 30.8 pg (27.0-33.0); MCHC 34.2 % (32.0-36.0); MCV 90 fL (80-95); MPV 9.8 fL (8.0-11.0); Platelet Count 307 10^3/uL (130-400); RBC 5.09 10^6/uL (3.93-5.22); RDW 13.0 % (11.7-14.6); RDW-SD 42.9 fL; WBC 7.10 10^3/uL (4.4-10.8)
[2025-09-15 09:01] LABS: Glucose Negative (Negative)
[2025-09-15 09:33] LABS: RBC Negative HPF (0-2); WBC 0-2 HPF (0-5)
[2025-09-15 09:34] LABS: C & S Indicated? No
[2025-09-15 09:36] LABS: ALT 56 U/L (10-49); AST 47 U/L (<34); Albumin 4.4 g/dL (3.4-5.0); Alkaline Phosphatase 54 U/L (46-116); Anion Gap 8.8 mmol/L (3-11); BUN 8 mg/dL (9-23); Bilirubin, Total 0.80 mg/dL (0.2-1.2); CO2 26.2 mmol/L (20.0-31.0); Calcium 9.1 mg/dL (8.3-10.6); Chloride 108 mmol/L (98-107); Glucose 93 mg/dL (74-106); Potassium 4.0 mmol/L (3.5-5.1); Sodium 143 mmol/L (136-145); Total Protein 7.0 g/dL (5.7-8.2)
== END 2025-09-15 08:32 | disposition home or self-care (01) ==
LOC: LBO 08:31
PROVIDERS: PCP Family Medicine; Visit Provider Family Medicine
DX: K90.0 Celiac disease (principal); Z00.00 Encounter for general adult medical examination without abnormal findings
CPT/HCPCS: 36415; 80053; 81003; 81015; 85025